=== PATIENT | male | born 1965 | race African-American/Black ===

== ENCOUNTER 2017-02-04 06:16 | Emergency (ER) | payer OTHER ==
[~2017-02-04] VITALS: Ht 180.3 cm; Wt 98.0 kg
[2017-02-04] MEDS ORDERED: KETOROLAC TROMETHAMINE 60 MG/2 ML VIAL IM ONE (08:00)
[2017-02-04 09:08] VITALS: BP 119/67
== END 2017-02-04 11:50 | disposition home or self-care (01) ==
LOC: EMS 06:17
DX: S39.012A Strain of muscle, fascia and tendon of lower back, initial encounter (principal); S29.012A Strain of muscle and tendon of back wall of thorax, initial encounter; I10 Essential (primary) hypertension; F17.210 Nicotine dependence, cigarettes, uncomplicated; X58.XXXA Exposure to other specified factors, initial encounter; Y93.89 Activity, other specified; Y92.89 Other specified places as the place of occurrence of the external cause; Y99.8 Other external cause status
CPT/HCPCS: 71020; 96372; 99284; J1885; 99283

== ENCOUNTER 2017-02-09 07:29 | Emergency (ER) | payer OTHER ==
[~2017-02-09] VITALS: Ht 180.3 cm; Wt 86.0 kg
[2017-02-09] MEDS ORDERED: CYCL10 PO (07:37)
[2017-02-09] MEDS ORDERED: PERCT PO (07:37)
[2017-02-09] MEDS ORDERED: IBUP-1546 PO (07:37)
[2017-02-09] MEDS ORDERED: MORPHINE SULFATE 4 MG/ML SYRINGE IVP ONE (08:15)
[2017-02-09] MEDS ORDERED: KETOROLAC TROMETHAMINE 30 MG/ML VIAL IVP ONE (08:15)
[2017-02-09 08:22] LABS: BASOPHILS % (AUTO) 0.5 % (0.0-2.0); EOSINOPHILS % (AUTO) 3.2 % (1.0-6.0); HEMATOCRIT 36.5 % (41-53); HEMOGLOBIN 11.9 g/dL (13.5-17.5); LYMPHOCYTES # (AUTO) 1.6 K/uL (1.0-4.8); LYMPHOCYTES % (AUTO) 29.1 % (22.0-44.0); MEAN CORPUSCULAR HGB CONC 32.7 G/dL (31.0-37.0); MEAN CORPUSCULAR VOLUME 86 fL (80-100); MONOCYTES # (AUTO) 0.5 K/uL (0.1-1.0); MONOCYTES % (AUTO) 8.9 % (2.0-9.0); NEUTROPHILS # (AUTO) 3.2 K/uL (1.8-7.7); NEUTROPHILS % (AUTO) 58.3 % (40.0-70.0); PLATELET COUNT (AUTO) 333 K/uL (150-450); RED BLOOD CELL COUNT(AUTO) 4.26 MIL/uL (4.50-5.90); RED CELL DISTRIBUTION WIDTH 12.3 % (11.5-14.5); WHITE BLOOD COUNT (AUTO) 5.5 K/uL (4.5-11.0)
[2017-02-09 08:33] LABS: ANION GAP 13 mmol/L (8-16); CALCIUM, TOTAL 8.6 mg/dL (8.8-10.5); CARBON DIOXIDE 25 mmol/L (22-29); CHLORIDE 103 mmol/L (98-107); GLOMERULAR FILTR. RATE CALC > 60 mL/min (>60); POTASSIUM 3.6 mmol/L (3.5-5.1); SODIUM SERUM 141 mmol/L (136-145); UREA NITROGEN, BLOOD 12 mg/dL (7-18)
[2017-02-09 08:38] LABS: ALANINE AMINOTRANSFERASE 49 U/L (12-78); ALBUMIN 3.3 g/dL (3.4-5.0); ASPARTATE AMINOTRANSFERASE 23 U/L (15-37); BILIRUBIN,TOTAL 0.4 mg/dL (0.1-1.0)
[2017-02-09 09:08] VITALS: BP 137/79
== END 2017-02-09 09:28 | disposition home or self-care (01) ==
LOC: EMS 07:30
DX: S39.012A Strain of muscle, fascia and tendon of lower back, initial encounter (principal); M51.36 Other intervertebral disc degeneration, lumbar region; K64.9 Unspecified hemorrhoids; I10 Essential (primary) hypertension; F17.210 Nicotine dependence, cigarettes, uncomplicated
CPT/HCPCS: 36415; 72131; 80053; 85025; 85610; 85730; 96374; 96375; 99285; J1885; J2270

== ENCOUNTER 2017-04-20 07:41 | Emergency (ER) | payer OTHER ==
[~2017-04-20] VITALS: Ht 180.3 cm; Wt 97.0 kg
[~2017-04-20 07:41] MED LIST: CYCL10 PO; IBUP-1546 PO; PERCT PO
[2017-04-20] MEDS ORDERED: HYDROCODONE/ACETAMINOPHEN 10-325 MG TABLET PO ONE (11:00)
[2017-04-20] MEDS ORDERED: KETOROLAC TROMETHAMINE 60 MG/2 ML VIAL IM ONE (11:00)
[2017-04-20 11:56] VITALS: BP 139/84
== END 2017-04-20 11:58 | disposition home or self-care (01) ==
LOC: EMS 07:43
DX: H66.92 Otitis media, unspecified, left ear (principal); M54.5 Low back pain; G89.29 Other chronic pain; I10 Essential (primary) hypertension; F17.210 Nicotine dependence, cigarettes, uncomplicated; Z76.0 Encounter for issue of repeat prescription
CPT/HCPCS: 96372; 99283; J1885

== ENCOUNTER 2017-07-21 08:33 | Emergency (ER) | payer OTHER ==
[~2017-07-21] VITALS: Ht 180.3 cm; Wt 97.7 kg
[2017-07-21] MEDS ORDERED: HYDROCODONE/ACETAMINOPHEN 5-325 MG TABLET PO ONE (10:45)
[2017-07-21 11:30] VITALS: BP 140/87
== END 2017-07-21 11:38 | disposition home or self-care (01) ==
LOC: EMS 08:36
DX: M54.5 Low back pain (principal); G89.29 Other chronic pain; J06.9 Acute upper respiratory infection, unspecified; H92.03 Otalgia, bilateral; I10 Essential (primary) hypertension; F17.210 Nicotine dependence, cigarettes, uncomplicated
CPT/HCPCS: 99283

== ENCOUNTER 2017-12-06 14:51 | Emergency (ER) | payer OTHER ==
[~2017-12-06] VITALS: Ht 180.3 cm; Wt 95.5 kg
[2017-12-06] MEDS ORDERED: PERTUSS(ACELL),DIPH,TET VAC/PF 0.5 ML VIAL IM ONE (17:00)
[2017-12-06] MEDS ORDERED: CEPHALEXIN MONOHYDRATE 500 MG CAPSULE PO ONE (17:00)
[2017-12-06] MEDS ORDERED: LIDOCAINE HCL 1% 10 ML VIAL INJ ONE (17:00)
[2017-12-06 17:50] VITALS: BP 152/94
== END 2017-12-06 17:53 | disposition home or self-care (01) ==
LOC: EMS 14:55
DX: L03.012 Cellulitis of left finger (principal); I10 Essential (primary) hypertension; F17.210 Nicotine dependence, cigarettes, uncomplicated; Z23 Encounter for immunization
CPT/HCPCS: 64450; 90471; 90715; 99284; J3490

== ENCOUNTER 2018-01-28 12:13 | Emergency (ER) | payer OTHER ==
[~2018-01-28] VITALS: Ht 175.3 cm; Wt 96.0 kg
[2018-01-28 13:05] LABS: EOSINOPHILS % (AUTO) 1.2 % (1.0-6.0); HEMATOCRIT 39.6 % (41-53); HEMOGLOBIN 13.5 g/dL (13.5-17.5); LYMPHOCYTES # (AUTO) 1.9 K/uL (1.0-4.8); LYMPHOCYTES % (AUTO) 30.3 % (22.0-44.0); MEAN CORPUSCULAR HEMOGLOBIN 28.7 pg (26.0-34.0); MEAN CORPUSCULAR HGB CONC 34.1 G/dL (31.0-37.0); MEAN CORPUSCULAR VOLUME 84 fL (80-100); MONOCYTES # (AUTO) 0.5 K/uL (0.1-1.0); MONOCYTES % (AUTO) 8.3 % (2.0-9.0); NEUTROPHILS # (AUTO) 3.8 K/uL (1.8-7.7); NEUTROPHILS % (AUTO) 59.2 % (40.0-70.0); PLATELET COUNT (AUTO) 333 K/uL (150-450); RED CELL DISTRIBUTION WIDTH 12.8 % (11.5-14.5)
[2018-01-28 13:16] LABS: ANION GAP 10 mmol/L (8-16); CALCIUM, TOTAL 9.2 mg/dL (8.8-10.5); CARBON DIOXIDE 27 mmol/L (22-29); CHLORIDE 103 mmol/L (98-107); CREATININE 1.04 mg/dL (0.60-1.30); GLOMERULAR FILTR. RATE CALC > 60 mL/min (>60); GLUCOSE,RANDOM 153 mg/dL (70-110); POTASSIUM 3.9 mmol/L (3.5-5.1); SODIUM SERUM 140 mmol/L (136-145); UREA NITROGEN, BLOOD 14 mg/dL (7-18)
[2018-01-28 13:22] LABS: ALANINE AMINOTRANSFERASE 38 U/L (12-78); ALBUMIN 3.9 g/dL (3.4-5.0); ALKALINE PHOSPHATASE 80 U/L (46-116); ASPARTATE AMINOTRANSFERASE 15 U/L (15-37); BILIRUBIN,TOTAL 0.8 mg/dL (0.1-1.0); TOTAL PROTEIN, SERUM 7.6 g/dL (6.4-8.2)
[2018-01-28 14:35] VITALS: BP 114/72
== END 2018-01-28 15:35 | disposition home or self-care (01) ==
LOC: EMS 12:14
DX: J06.9 Acute upper respiratory infection, unspecified (principal); R07.89 Other chest pain; M54.5 Low back pain; G89.29 Other chronic pain; I10 Essential (primary) hypertension; F17.210 Nicotine dependence, cigarettes, uncomplicated
CPT/HCPCS: 71046; 93005; 99285

== ENCOUNTER 2018-05-19 09:32 | Emergency (ER) | payer OTHER, MEDICAID ==
[~2018-05-19] VITALS: Ht 180.3 cm; Wt 95.5 kg
[2018-05-19 10:24] VITALS: BP 129/63
[2018-05-19] MEDS ORDERED: IBUPROFEN 800 MG TABLET PO ONE (10:30)
== END 2018-05-19 10:45 | disposition left against medical advice (07) ==
LOC: EMS 09:34
DX: M25.531 Pain in right wrist (principal); I10 Essential (primary) hypertension; F17.210 Nicotine dependence, cigarettes, uncomplicated
CPT/HCPCS: 99281

== ENCOUNTER 2019-11-29 12:32 | Emergency (ER) | payer MEDICAID, OTHER ==
[~2019-11-29] VITALS: Ht 180.3 cm; Wt 95.5 kg
[2019-11-29] MEDS ORDERED: HYDR-4455 PO (12:45)
[2019-11-29] MEDS ORDERED: KETOROLAC TROMETHAMINE 60 MG/2 ML VIAL IM ONE (13:45)
[2019-11-29 14:52] VITALS: BP 165/100
== END 2019-11-29 14:54 | disposition home or self-care (01) ==
LOC: EMS 12:44
DX: H92.03 Otalgia, bilateral (principal); J02.9 Acute pharyngitis, unspecified; I10 Essential (primary) hypertension; F17.210 Nicotine dependence, cigarettes, uncomplicated; F11.90 Opioid use, unspecified, uncomplicated; F12.90 Cannabis use, unspecified, uncomplicated; Z98.890 Other specified postprocedural states
CPT/HCPCS: 96372; 99283; 99406; J1885

== ENCOUNTER 2020-01-16 10:10 | Emergency (ER) | payer OTHER ==
[~2020-01-16] VITALS: Ht 180.3 cm; Wt 93.2 kg
[~2020-01-16 10:10] MED LIST changes: -CYCL10 PO; +HYDR-4455 PO; -IBUP-1546 PO; -PERCT PO
[2020-01-16 10:50] LABS: BASOPHILS % (AUTO) 1.3 % (0.0-2.0); EOSINOPHILS % (AUTO) 1.8 % (1.0-6.0); HEMATOCRIT 41.8 % (41-53); LYMPHOCYTES # (AUTO) 1.6 K/uL (1.0-4.8); LYMPHOCYTES % (AUTO) 33.1 % (22.0-44.0); MEAN CORPUSCULAR HEMOGLOBIN 29.4 pg (26.0-34.0); MEAN CORPUSCULAR HGB CONC 33.4 G/dL (31.0-37.0); MEAN CORPUSCULAR VOLUME 88 fL (80-100); MONOCYTES # (AUTO) 0.7 K/uL (0.1-1.0); MONOCYTES % (AUTO) 13.6 % (2.0-9.0); NEUTROPHILS # (AUTO) 2.5 K/uL (1.8-7.7); NEUTROPHILS % (AUTO) 50.2 % (40.0-70.0); PLATELET COUNT (AUTO) 369 K/uL (150-450); RED BLOOD CELL COUNT(AUTO) 4.74 MIL/uL (4.50-5.90); RED CELL DISTRIBUTION WIDTH 12.4 % (11.5-14.5)
[2020-01-16 10:58] LABS: ANION GAP 7 mmol/L (8-16); CALCIUM, TOTAL 9.2 mg/dL (8.8-10.5); CARBON DIOXIDE 29 mmol/L (22-29); CHLORIDE 106 mmol/L (98-107); CREATININE 1.09 mg/dL (0.60-1.30); GLOMERULAR FILTR. RATE CALC > 60 mL/min (>60); GLUCOSE,RANDOM 121 mg/dL (70-110); POTASSIUM 4.1 mmol/L (3.5-5.1); SODIUM SERUM 142 mmol/L (136-145); UREA NITROGEN, BLOOD 11 mg/dL (7-18)
[2020-01-16 11:04] LABS: ALANINE AMINOTRANSFERASE 73 U/L (12-78); ALBUMIN 3.9 g/dL (3.4-5.0); ALKALINE PHOSPHATASE 86 U/L (46-116); ASPARTATE AMINOTRANSFERASE 30 U/L (15-37); BILIRUBIN,TOTAL 0.6 mg/dL (0.1-1.0); TOTAL PROTEIN, SERUM 7.9 g/dL (6.4-8.2)
[2020-01-16 11:50] VITALS: BP 122/52
== END 2020-01-16 12:06 | disposition home or self-care (01) ==
LOC: EMS 10:10
DX: J06.9 Acute upper respiratory infection, unspecified (principal); I10 Essential (primary) hypertension; F17.210 Nicotine dependence, cigarettes, uncomplicated; F14.90 Cocaine use, unspecified, uncomplicated; F12.90 Cannabis use, unspecified, uncomplicated; G89.29 Other chronic pain
CPT/HCPCS: 93005

== ENCOUNTER 2020-01-24 10:12 | Emergency (ER) | payer OTHER ==
[~2020-01-24] VITALS: Ht 177.8 cm; Wt 100.0 kg
[2020-01-24] MEDS ORDERED: IBUP-2271 PO (10:22)
[2020-01-24 13:02] VITALS: BP 160/95
== END 2020-01-24 13:28 | disposition home or self-care (01) ==
LOC: EMS 10:13
DX: I10 Essential (primary) hypertension (principal); R51 Headache; F17.210 Nicotine dependence, cigarettes, uncomplicated; F11.90 Opioid use, unspecified, uncomplicated; F12.90 Cannabis use, unspecified, uncomplicated; Z98.890 Other specified postprocedural states; Z79.899 Other long term (current) drug therapy
CPT/HCPCS: 70450

== ENCOUNTER 2020-01-30 13:10 | Emergency (ER) | payer OTHER ==
[~2020-01-30] VITALS: Ht 175.3 cm; Wt 86.0 kg
[~2020-01-30 13:10] MED LIST changes: +IBUP-2271 PO
[2020-01-30] MEDS ORDERED: PENICILLIN V POTASSIUM 500 MG TABLET PO ONE (14:15)
[2020-01-30] MEDS ORDERED: HYDROCODONE/ACETAMINOPHEN 10-325 MG TABLET PO ONE (14:15)
[2020-01-30 15:21] VITALS: BP 141/90
== END 2020-01-30 15:36 | disposition home or self-care (01) ==
LOC: EMS 13:10
DX: K02.9 Dental caries, unspecified (principal); R51 Headache; G89.29 Other chronic pain; I10 Essential (primary) hypertension; F17.210 Nicotine dependence, cigarettes, uncomplicated; F11.90 Opioid use, unspecified, uncomplicated; F12.90 Cannabis use, unspecified, uncomplicated; Z79.899 Other long term (current) drug therapy; Z98.890 Other specified postprocedural states
CPT/HCPCS: 99406

== ENCOUNTER 2020-05-14 11:49 | Emergency (ER) | payer OTHER ==
[~2020-05-14] VITALS: Ht 180.3 cm; Wt 90.9 kg
[2020-05-14] MEDS ORDERED: KETOROLAC TROMETHAMINE 60 MG/2 ML VIAL IM ONE (13:00)
[2020-05-14] MEDS ORDERED: METHOCARBAMOL 500 MG TABLET PO ONE (13:00)
[2020-05-14 14:00] VITALS: BP 158/97
== END 2020-05-14 14:15 | disposition home or self-care (01) ==
LOC: EMS 11:51
DX: M54.6 Pain in thoracic spine (principal); M25.511 Pain in right shoulder; F17.210 Nicotine dependence, cigarettes, uncomplicated; I10 Essential (primary) hypertension; F14.90 Cocaine use, unspecified, uncomplicated; F12.90 Cannabis use, unspecified, uncomplicated; Z79.899 Other long term (current) drug therapy
CPT/HCPCS: 96372; 99283; J1885

== ENCOUNTER 2020-05-19 09:15 | Emergency (ER) | payer OTHER ==
[~2020-05-19] VITALS: Ht 180.3 cm; Wt 93.2 kg
[2020-05-19] MEDS ORDERED: METHOCARBAMOL 500 MG TABLET PO ONE (10:45)
[2020-05-19] MEDS ORDERED: KETOROLAC TROMETHAMINE 60 MG/2 ML VIAL IM ONE (10:45)
[2020-05-19 10:48] VITALS: BP 146/83
== END 2020-05-19 11:18 | disposition home or self-care (01) ==
LOC: EMS 09:19
DX: S46.911A Strain of unspecified muscle, fascia and tendon at shoulder and upper arm level, right arm, initial encounter (principal); I10 Essential (primary) hypertension; F17.210 Nicotine dependence, cigarettes, uncomplicated; F14.90 Cocaine use, unspecified, uncomplicated; F12.90 Cannabis use, unspecified, uncomplicated; G89.29 Other chronic pain; X58.XXXA Exposure to other specified factors, initial encounter; Y93.89 Activity, other specified; Y92.89 Other specified places as the place of occurrence of the external cause; Y99.8 Other external cause status
CPT/HCPCS: 96372; 99283; J1885

== ENCOUNTER 2020-08-14 10:22 | Emergency (ER) | payer OTHER ==
[~2020-08-14] VITALS: Ht 180.3 cm; Wt 109.0 kg
[2020-08-14] MEDS ORDERED: KETOROLAC TROMETHAMINE 30 MG/ML VIAL IVP ONE (11:15)
[2020-08-14 11:34] LABS: BASOPHILS % (AUTO) 0.9 % (0.0-2.0); EOSINOPHILS % (AUTO) 0.9 % (1.0-6.0); HEMATOCRIT 37.7 % (41-53); HEMOGLOBIN 12.9 g/dL (13.5-17.5); LYMPHOCYTES # (AUTO) 1.7 K/uL (1.0-4.8); LYMPHOCYTES % (AUTO) 25.9 % (22.0-44.0); MEAN CORPUSCULAR HEMOGLOBIN 29.6 pg (26.0-34.0); MEAN CORPUSCULAR VOLUME 87 fL (80-100); MONOCYTES # (AUTO) 0.8 K/uL (0.1-1.0); MONOCYTES % (AUTO) 12.5 % (2.0-9.0); NEUTROPHILS # (AUTO) 3.9 K/uL (1.8-7.7); NEUTROPHILS % (AUTO) 59.8 % (40.0-70.0); PLATELET COUNT (AUTO) 344 K/uL (150-450); RED BLOOD CELL COUNT(AUTO) 4.34 MIL/uL (4.50-5.90); RED CELL DISTRIBUTION WIDTH 12.8 % (11.5-14.5)
[2020-08-14] MEDS ORDERED: KETOROLAC TROMETHAMINE 30 MG/ML VIAL IM ONE (11:45)
[2020-08-14 11:49] LABS: ANION GAP 7 mmol/L (8-16); CALCIUM, TOTAL 8.8 mg/dL (8.8-10.5); CARBON DIOXIDE 28 mmol/L (22-29); CHLORIDE 105 mmol/L (98-107); CREATININE 1.13 mg/dL (0.60-1.30); GLOMERULAR FILTR. RATE CALC > 60 mL/min (>60); GLUCOSE,RANDOM 200 mg/dL (70-110); POTASSIUM 3.3 mmol/L (3.5-5.1); SODIUM SERUM 140 mmol/L (136-145); UREA NITROGEN, BLOOD 12 mg/dL (7-18)
[2020-08-14 11:55] LABS: ALANINE AMINOTRANSFERASE 53 U/L (12-78); ALKALINE PHOSPHATASE 73 U/L (46-116); ASPARTATE AMINOTRANSFERASE 30 U/L (15-37); BILIRUBIN,TOTAL 1.1 mg/dL (0.1-1.0); CREATINE KINASE, TOTAL ONLY 383 U/L (39-308); TOTAL PROTEIN, SERUM 7.6 g/dL (6.4-8.2)
[2020-08-14 12:01] VITALS: BP 138/72
[2020-08-14 12:05] LABS: B-TYPE NATRIURETIC PEPTIDE < 5 pg/mL (0-100)
[2020-08-14 12:20] LABS: COVID AG,FIA SOURCE NASOPHARYNGEAL
[2020-08-14] MEDS ORDERED: POTASSIUM CHLORIDE 20 MEQ ER TABLET PO ONE (12:30)
== END 2020-08-14 13:45 | disposition home or self-care (01) ==
LOC: EMS 10:23
DX: R07.9 Chest pain, unspecified (principal); R05 Cough; I10 Essential (primary) hypertension; F17.210 Nicotine dependence, cigarettes, uncomplicated; F14.90 Cocaine use, unspecified, uncomplicated; F12.90 Cannabis use, unspecified, uncomplicated; G89.29 Other chronic pain; Z20.828 Contact with and (suspected) exposure to other viral communicable diseases
CPT/HCPCS: 36415; 71045; 80053; 82550; 83880; 84484; 85025; 87426; 93005; 96372; 99285; 99406; J1885; U0003

== ENCOUNTER 2020-09-03 09:46 | Emergency (ER) | payer OTHER ==
[~2020-09-03] VITALS: Ht 180.3 cm; Wt 90.9 kg
[2020-09-03] MEDS ORDERED: HYDR-4455 PO (09:47)
[2020-09-03 09:48] VITALS: BP 137/79
[2020-09-03] MEDS ORDERED: LIDOCAINE 5% TRANSDERMAL PATCH TD ONE (10:15)
== END 2020-09-03 11:52 | disposition home or self-care (01) ==
LOC: EMS 09:47
DX: S22.32XA Fracture of one rib, left side, initial encounter for closed fracture (principal); I10 Essential (primary) hypertension; F17.210 Nicotine dependence, cigarettes, uncomplicated; F12.90 Cannabis use, unspecified, uncomplicated; F14.90 Cocaine use, unspecified, uncomplicated; W11.XXXA Fall on and from ladder, initial encounter; Y93.89 Activity, other specified; Y92.89 Other specified places as the place of occurrence of the external cause; Y99.8 Other external cause status
CPT/HCPCS: 71101

== ENCOUNTER 2021-02-03 11:16 | Emergency (ER) | payer OTHER ==
[~2021-02-03] VITALS: Ht 177.8 cm; Wt 94.1 kg
[~2021-02-03 11:16] MED LIST changes: -IBUP-2271 PO
[2021-02-03 13:11] LABS: ANION GAP 12 mmol/L (8-16); CALCIUM, TOTAL 9.1 mg/dL (8.8-10.5); CARBON DIOXIDE 27 mmol/L (22-29); CHLORIDE 104 mmol/L (98-107); CREATININE 0.82 mg/dL (0.60-1.30); GLOMERULAR FILTR. RATE CALC > 60 mL/min (>60); GLUCOSE,RANDOM 103 mg/dL (70-110); POTASSIUM 4.1 mmol/L (3.5-5.1); SODIUM SERUM 143 mmol/L (136-145); UREA NITROGEN, BLOOD 10 mg/dL (7-18)
[2021-02-03 13:16] LABS: ALANINE AMINOTRANSFERASE 25 U/L (12-78); ALKALINE PHOSPHATASE 69 U/L (46-116); ASPARTATE AMINOTRANSFERASE 14 U/L (15-37); TOTAL PROTEIN, SERUM 7.6 g/dL (6.4-8.2)
[2021-02-03] MEDS ORDERED: KETOROLAC TROMETHAMINE 60 MG/2 ML VIAL IM ONE (13:45)
[2021-02-03 14:00] VITALS: BP 140/60
== END 2021-02-03 14:10 | disposition home or self-care (01) ==
LOC: EMS 11:24
DX: M54.10 Radiculopathy, site unspecified (principal)
CPT/HCPCS: 36415; 71045; 72070; 80053; 96372; 99284; J1885

== ENCOUNTER 2021-04-01 11:11 | Emergency (ER) | payer OTHER ==
[~2021-04-01] VITALS: Ht 180.3 cm; Wt 97.7 kg
[2021-04-01 15:26] VITALS: BP 148/90
== END 2021-04-01 15:28 | disposition home or self-care (01) ==
LOC: EMS 11:16
DX: S60.222A Contusion of left hand, initial encounter (principal); S00.03XA Contusion of scalp, initial encounter; I10 Essential (primary) hypertension; F17.210 Nicotine dependence, cigarettes, uncomplicated; F14.90 Cocaine use, unspecified, uncomplicated; F12.90 Cannabis use, unspecified, uncomplicated; W19.XXXA Unspecified fall, initial encounter; Y93.89 Activity, other specified; Y92.89 Other specified places as the place of occurrence of the external cause; Y99.8 Other external cause status
CPT/HCPCS: 70450; 99284

== ENCOUNTER 2021-11-06 16:57 | Emergency (ER) | payer OTHER ==
[~2021-11-06] VITALS: Ht 182.9 cm; Wt 85.0 kg
[2021-11-06] MEDS ORDERED: BACITRACIN 0.9 GM PACKET OINTMENT TP ONE (17:45)
[2021-11-06] MEDS ORDERED: LIDOCAINE 1% 10 ML VIAL PERC ONE (17:45)
[2021-11-06] MEDS ORDERED: BUPIVACAINE HCL/PF 0.25% 10 ML VIAL PERC ONE (17:45)
[2021-11-06 19:06] VITALS: BP 136/74
== END 2021-11-06 19:11 | disposition home or self-care (01) ==
LOC: EMS 17:02
DX: S61.213A Laceration without foreign body of left middle finger without damage to nail, initial encounter (principal); I10 Essential (primary) hypertension; F17.210 Nicotine dependence, cigarettes, uncomplicated; F14.90 Cocaine use, unspecified, uncomplicated; F12.90 Cannabis use, unspecified, uncomplicated; W26.0XXA Contact with knife, initial encounter; Y93.89 Activity, other specified; Y92.89 Other specified places as the place of occurrence of the external cause; Y99.8 Other external cause status
CPT/HCPCS: 12001; 99282; J3490 ×2

== ENCOUNTER 2022-08-10 11:05 | Emergency (ER) | payer OTHER ==
[~2022-08-10] VITALS: Ht 180.3 cm; Wt 83.0 kg
[2022-08-10 11:09] VITALS: BP 143/101
[2022-08-10] MEDS ORDERED: HTN PO (11:09)
[2022-08-10] MEDS ORDERED: ACETAMINOPHEN 500 MG TABLET PO ONE (15:00)
[2022-08-10] MEDS ORDERED: KETOROLAC TROMETHAMINE 30 MG/ML VIAL IM ONE (15:00)
[2022-08-10] MEDS ORDERED: ACET-66 PO (16:29)
[2022-08-10] MEDS ORDERED: IBUP-2070 PO (16:29)
== END 2022-08-10 17:00 | disposition home or self-care (01) ==
LOC: EMS 11:33
DX: K06.8 Other specified disorders of gingiva and edentulous alveolar ridge (principal); I10 Essential (primary) hypertension; F17.210 Nicotine dependence, cigarettes, uncomplicated; F12.90 Cannabis use, unspecified, uncomplicated; F14.90 Cocaine use, unspecified, uncomplicated; Z87.39 Personal history of other diseases of the musculoskeletal system and connective tissue; Z98.890 Other specified postprocedural states
CPT/HCPCS: 99283; 96372; J1885

== ENCOUNTER 2022-08-19 08:45 | Emergency (ER) | payer MEDICARE, OTHER ==
[~2022-08-19] VITALS: Ht 180.3 cm; Wt 83.0 kg
[~2022-08-19 08:45] MED LIST changes: +ACET-66 PO; +HTN PO; -HYDR-4455 PO; +IBUP-2070 PO
[2022-08-19 08:51] VITALS: BP 132/72
[2022-08-19] MEDS ORDERED: PERCT PO (11:17)
[2022-08-20] MEDS ORDERED: PERCT PO (14:45)
== END 2022-08-19 12:14 | disposition home or self-care (01) ==
LOC: EMS 08:52
DX: G89.29 Other chronic pain (principal); M54.6 Pain in thoracic spine; I10 Essential (primary) hypertension; F17.210 Nicotine dependence, cigarettes, uncomplicated; F12.90 Cannabis use, unspecified, uncomplicated; F14.90 Cocaine use, unspecified, uncomplicated; Z98.890 Other specified postprocedural states
CPT/HCPCS: 71045; 99283

== ENCOUNTER 2023-11-19 16:26 | Emergency (ER) | payer MEDICARE, OTHER ==
[~2023-11-19] VITALS: Ht 180.3 cm; Wt 88.6 kg
[~2023-11-19 16:26] MED LIST changes: +IBUP-1492 PO; -IBUP-2070 PO; +PERCT PO
[2023-11-19 16:30] VITALS: BP 135/83; PULSE 88; RESP 18; TEMP 98.5
[2023-11-19] MEDS ORDERED: BACITRACIN 0.9 GM PACKET OINTMENT TP ONE (18:15)
[2023-11-19] MEDS ORDERED: CEPHALEXIN MONOHYDRATE 500 MG CAPSULE PO ONE (18:15)
[2023-11-19] MEDS ORDERED: CEPH-558 PO (19:18)
== END 2023-11-19 18:53 | disposition home or self-care (01) ==
LOC: EMS 16:28
DX: S61.412A Laceration without foreign body of left hand, initial encounter (principal); I10 Essential (primary) hypertension; F17.210 Nicotine dependence, cigarettes, uncomplicated; F14.90 Cocaine use, unspecified, uncomplicated; F12.90 Cannabis use, unspecified, uncomplicated; Z98.890 Other specified postprocedural states; W45.8XXA Other foreign body or object entering through skin, initial encounter; Y93.89 Activity, other specified; Y92.89 Other specified places as the place of occurrence of the external cause; Y99.8 Other external cause status
CPT/HCPCS: 99283